=== PATIENT | male | born 1950 | race Caucasian/White ===

== ENCOUNTER 2025-03-19 06:28 | Day surgery (SDC) | payer OTHER, SELFPAY | END 2025-03-19 11:32 | disposition home or self-care (01) | LOC: GI 06:28 | PROVIDERS: ATTENDING PHYSICIAN Internal Medicine Gastroenterology | DX: D12.2 Benign neoplasm of ascending colon (principal); D12.5 Benign neoplasm of sigmoid colon; Z85.038 Personal history of other malignant neoplasm of large intestine; Z98.0 Intestinal bypass and anastomosis status | CPT/HCPCS: 45380; 88305 ==